=== PATIENT | female | born 1970 | race Asian ===

== ENCOUNTER 2025-06-12 09:49 | Outpatient (CLI) | payer BC | END 2025-06-12 09:50 | disposition home or self-care (01) | LOC: BICRAD 09:49 | PROVIDERS: ATTEND Radiology Radiation Oncology | DX: M25.551 Pain in right hip (principal); M79.604 Pain in right leg; C50.919 Malignant neoplasm of unspecified site of unspecified female breast ==

== ENCOUNTER 2025-06-14 12:49 | Outpatient (CLI) | payer BC | END 2025-06-14 12:50 | disposition home or self-care (01) | LOC: CT 12:49 | PROVIDERS: ATTEND Specialist | DX: C50.911 Malignant neoplasm of unspecified site of right female breast (principal); C79.51 Secondary malignant neoplasm of bone; R91.8 Other nonspecific abnormal finding of lung field; R59.0 Localized enlarged lymph nodes | CPT/HCPCS: 71260; 74177 ==

== ENCOUNTER 2025-06-27 07:17 | Outpatient (CLI) | payer BC | END 2025-06-27 07:18 | disposition home or self-care (01) | LOC: SCSMRI 07:17 | PROVIDERS: ATTEND Internal Medicine Hematology & Oncology | DX: C50.111 Malignant neoplasm of central portion of right female breast (principal); C79.51 Secondary malignant neoplasm of bone | CPT/HCPCS: 70553; 76376 ==

== ENCOUNTER 2025-10-15 11:45 | Outpatient (CLI) | payer BC | END 2025-10-15 11:46 | disposition home or self-care (01) | LOC: PET 11:45 | PROVIDERS: ATTEND Internal Medicine Hematology & Oncology | DX: C50.111 Malignant neoplasm of central portion of right female breast (principal); C79.51 Secondary malignant neoplasm of bone; C79.89 Secondary malignant neoplasm of other specified sites | CPT/HCPCS: 78815; A9552 ==